=== PATIENT | female | born 1975 | race Two or more races ===

== ENCOUNTER 2018-07-12 10:45 | Inpatient (IN) | payer OTHER ==
[~2018-07-12] VITALS: Ht 154.9 cm; Wt 61.2 kg
[2018-07-12] MEDS ORDERED: PHENOBARBITAL30 MG PO ×2 (13:02→14:12)
[2018-07-16] MEDS ORDERED: OXYC1TAB9 PO (18:17)
== END 2018-07-16 18:47 | disposition home or self-care (01) | DRG 742 ==
LOC: O/R 07-15 08:06 → OB/GYN 07-15 10:45
PROVIDERS: ADMIT Specialist
PROC: 0UT74ZZ Resection of Bilateral Fallopian Tubes, Percutaneous Endoscopic Approach (ICD-10-PCS; 2018-07-15)
PROC: 0UT94ZZ Resection of Uterus, Percutaneous Endoscopic Approach (ICD-10-PCS; principal; 2018-07-15 10:00)
DX: D25.1 Intramural leiomyoma of uterus (principal); G40.802 Other epilepsy, not intractable, without status epilepticus; D25.0 Submucous leiomyoma of uterus; D25.2 Subserosal leiomyoma of uterus; N80.0 Endometriosis of uterus